=== PATIENT | female | born 2000 | race Caucasian/White ===

== ENCOUNTER 2023-12-15 03:03 | Observation (INO) | payer BC ==
[2023-12-15] VITALS (10 sets, daily range): BP systolic 102–124; BP diastolic 58–79; PULSE 107–129; TEMP 98.6–100.7
[~2023-12-15] VITALS: Ht 165.1 cm; Wt 55.1 kg
[2023-12-15] MEDS ORDERED: NS 1,000 ML IV ONE (03:45)
[2023-12-15] MEDS ORDERED: Ondansetron 4 MG/2 ML VIAL IV ONE (03:45)
[2023-12-15] MEDS ORDERED: Ketorolac 30 MG/ML VIAL IV ONE (03:45)
[2023-12-15 03:58] LABS: HEMATOCRIT 42.7 % (37.0-47.0); HEMOGLOBIN 14.7 g/dl (12.5-16.0); MEAN CELL VOLUME 85 fl (80.0-100.0); MEAN CORPUSCULAR HEMOGLOBIN 29 pg (27-31); MEAN CORPUSCULAR HGB CONC 34 g/dl (33.0-37.0); MEAN PLATELET VOLUME 10.7 fl (7.4-10.4); PLATELET COUNT 280 K/mm3 (130-400); RED BLOOD COUNT 5.01 M/mm3 (4.10-5.30); REDCELL DISTRIBUTION WIDTH-CV 11.3 % (11.5-14.5)
[2023-12-15 04:25] LABS: ALBUMIN 4.5 g/dL (3.5-5.0); BILIRUBIN,TOTAL 1.1 mg/dL (0.2-1.2); C-REACTIVE PROTEIN 0.17 mg/dL (0.00-0.50); CALCIUM 9.9 mg/dL (8.4-10.2); CREATININE, serum 0.79 mg/dL (0.57-1.11); POTASSIUM 3.6 mEq/L (3.5-4.5); TOTAL PROTEIN 7.4 g/dl (6.2-8.1)
[2023-12-15] MEDS ORDERED: Iohexol 350 - 100 ML VIAL IV ONE (04:27)
[2023-12-15] MEDS ORDERED: NS 50 ML IV ONE (04:28)
[2023-12-15 04:29] LABS: BAND 2 % (0-10); LYMPHOCYTE 5 % (20.0-51.0); PLATELET ESTIMATE NORMAL (NORMAL)
[2023-12-15 04:30] LABS: NEUTROPHILS 84 % (42.0-75.2)
[2023-12-15] MEDS ORDERED: EFFEXOR-XR150 MG PO (05:44)
--- NOTE | 2023-12-15 06:04 | NUR ---
Report recieved from EARLENE Arthur. All questions answered at this time.
[2023-12-15] MEDS ORDERED: Ondansetron 4 MG/2 ML VIAL IV PRN ×4 (06:15→14:00)
[2023-12-15] MEDS ORDERED: Morphine 4 MG/ML VIAL IV PRN (06:15)
[2023-12-15] MEDS ORDERED: NS 1,000 ML IV SCH (06:15)
--- NOTE | 2023-12-15 06:15 | NUR ---
Patient arrived to room 354 at this time. Rates pain at 5/10 in RLQ, states this is a tolerable level of pain for her. Needs met. Assessment and med rec completed. IV in right AC infusing without complications. UA obtained. Oriented patient to room, bed, call light, and bathroom. Call light and personal items in reach. Bed in low position.
[2023-12-15 07:04] LABS: URINE APPEARANCE CLEAR (CLEAR/HAZY); URINE BLOOD NEGATIVE (NEGATIVE); URINE COLOR YELLOW (YELLOW); URINE GLUCOSE NEGATIVE (NEGATIVE); URINE KETONE TRACE (NEGATIVE); URINE NITRATE NEGATIVE (NEGATIVE); URINE PROTEIN(semi-quant) 1+ (NEGATIVE)
[2023-12-15 07:29] LABS: COLLECTION METHOD CLEAN CATCH
--- NOTE | 2023-12-15 07:41 | NUR ---
Bedside report received from EARLENE Clay. Pt awake in bed with at bedside. Pt has no complaints at this time. Call light within reach.
--- NOTE | 2023-12-15 08:10 | NUR ---
Pt awake in bed with complaints of ABD pain rating 8/10. PRN Morphine administered per emar. Shift assessment completed. IVF infusing into RAC with no complications as ordered. VSS. NPO status in place. Pt has no request at this time. Call light within reach.
--- NOTE | 2023-12-15 08:48 | NUR ---
stock house worker met with pt to discuss intake information. She reports to have just moved to [place] with her , Ирина [phone]. She does not have a PCP and accept the provider list from . She obtains medications from [facility] with no difficulties. She is independent with ADLS and uses no DME. She does not have a DPOA-HC and is agreeable to her as NOK. She expressed no further needs. Discharge Plan: home
[2023-12-15] MEDS ORDERED: hydrALAZINE 20 MG/ML 1 ML VIAL IV PRN (10:30)
[2023-12-15] MEDS ORDERED: fentaNYL 50 MCG/ML 1 ML SYRINGE/VIAL [PACU/SDC ONLY] IV PRN ×2 (10:30→13:00)
[2023-12-15] MEDS ORDERED: HYDROmorphone 1 MG/1 ML SYRINGE [PACU/SDC ONLY] IV PRN ×2 (10:30→13:00)
[2023-12-15] MEDS ORDERED: Scopolamine 1 MG Delivered 3-Day PATCH TD SCH (10:30)
[2023-12-15] MEDS ORDERED: LR 1,000 ML IV SCH (10:30)
--- NOTE | 2023-12-15 11:14 | NUR ---
Initial visit: Patient thanked [employer] for stopping in and wishing her well and rapid and thorough recovery from her appendectomy.
[2023-12-15] MEDS ORDERED: dexAMETHasone 10 MG/ML VIAL ONE (12:33)
[2023-12-15] MEDS ORDERED: Rocuronium 50 MG/5 ML Multi-Dose VIAL ONE (12:33)
[2023-12-15] MEDS ORDERED: fentaNYL 50 MCG/ML 2 ML VIAL ONE (12:33)
[2023-12-15] MEDS ORDERED: Ondansetron 4 MG/2 ML VIAL ONE (12:33)
[2023-12-15] MEDS ORDERED: NS 10 ML IV ONE (12:33)
[2023-12-15] MEDS ORDERED: Lidocaine PF 2% (20 MG/ML) 5 ML VIAL ONE (12:33)
[2023-12-15] MEDS ORDERED: Morphine 2 MG/1 ML VIAL [PACU/SDC ONLY] IV PRN (13:00)
[2023-12-15] MEDS ORDERED: Meperidine 50 MG/ML 1 ML VIAL IV PRN (13:00)
[2023-12-15] MEDS ORDERED: Topical Skin Adhesive 1 EACH (1 ML) TOP ONE (13:24)
[2023-12-15] MEDS ORDERED: Ketorolac 30 MG/ML VIAL ONE (13:37)
[2023-12-15] MEDS ORDERED: NORCO 325 MG-51 TAB PO (13:48)
[2023-12-15] MEDS ORDERED: Ibuprofen 600 MG TAB PO PRN (14:00)
[2023-12-15] MEDS ORDERED: Acetaminophen 325 MG TAB PO PRN (14:00)
--- NOTE | 2023-12-15 14:27 | NUR ---
Pt back to medical floor from PACU. Pt A&O x4. Pt tolerating ice chips with no complaints of nausea. Lap sites x3 to ABD CDI covered with skin glue. VSS with temp of 99.1. Pt denies pain rating 0/10. Pt has no request at this time. Call light within reach.
--- NOTE | 2023-12-15 15:35 | NUR ---
Discharge instructions provided to pt and pt verbalized understanding of discharge paperwork. INT to Rt AC discontinued with tip intact, pt tolerated well with no complaints. Pt is leaving facility with back to home.
[2023-12-16] MEDS ORDERED: Influenza Virus Vaccine, Trivalent '24-25 0.5 ML SYRINGE IM SCH (09:00)
== END 2023-12-15 16:04 | disposition home or self-care (01) ==
LOC: COL.ER 03:03 → MEDICAL 05:35
PROVIDERS: Emergency Medicine; ADMIT Surgery
DX: K35.80 Unspecified acute appendicitis (principal); Z87.891 Personal history of nicotine dependence
CPT/HCPCS: G0378; J0690; J1100; J1885; J1956; J2270; J2405; J2704; J3010; J7030; J7120; Q9967